=== PATIENT | female | born 1990 | race African-American/Black ===

== ENCOUNTER 2017-01-24 12:39 | Emergency (ER) | payer MEDICAID ==
[~2017-01-24] VITALS: Ht 160 cm; Wt 71.8 kg
[2017-01-24] MEDS ORDERED: IBUPROFEN 200 MG TABLET ONE (14:22)
[2017-01-24] MEDS ORDERED: IBUPROFEN 200 MG TABLET PO ONE (14:30)
[2017-01-24 14:45] VITALS: BP 105/40
== END 2017-01-24 14:47 | disposition home or self-care (01) ==
LOC: ED 13:30
DX: S20.212A Contusion of left front wall of thorax, initial encounter (principal); M79.605 Pain in left leg; X58.XXXA Exposure to other specified factors, initial encounter; Y93.89 Activity, other specified; Y92.89 Other specified places as the place of occurrence of the external cause; Y99.9 Unspecified external cause status
CPT/HCPCS: 71020; 93005; 99284